=== PATIENT | male | born 1945 | race Two or more races ===

== ENCOUNTER 2016-11-27 14:27 | Inpatient (IN) | payer MEDICARE, MEDICAID ==
[~2016-11-27] VITALS: Ht 175.3 cm; Wt 86.2 kg
[2016-11-27] MEDS ORDERED: INSU3INS6 SQ (15:13)
[2016-11-27] MEDS ORDERED: METF10002 PO (15:13)
[2016-11-27] MEDS ORDERED: INSU3INS8 (15:13)
--- NOTE | 2016-11-27 15:15 | NUR ---
1st contact with patient- AOx3, calm, cooperative and follows command, strong body scent noted with clean clothes, patient's adult-son is at bedside.
--- NOTE | 2016-11-27 15:40 | NUR ---
intake worker Vasu is at bedside evaluating the patient.
[2016-11-27 15:44] LABS: ETHANOL < 3 MG/DL (0-0)
[2016-11-27 15:45] LABS: *BILIRUBIN,URIN NEGATIVE (NEGATIVE); *BLOOD, URINE NEGATIVE (NEGATIVE); *CLARITY,URINE CLEAR (CLEAR); *COLOR,URINE YELLOW (YELLOW); *KETONES,URINE NEGATIVE (NEGATIVE); *PROTEIN,URINE NEGATIVE (NEGATIVE); *UROBILINOGEN,URINE 0.2 E.U./dl (NORMAL); LEUKOCYTE ESTERASE ,URINE NEGATIVE (NEGATIVE); NITRITE, URINE NEGATIVE (NEGATIVE)
[2016-11-27 15:48] LABS: BASOPHILS % (AUTO) 0.4 % (0.0-2.0); EOSINOPHILS # (AUTO) 0.1 K/uL (0.0-0.7); EOSINOPHILS % (AUTO) 1.4 % (0.0-7.0); HEMATOCRIT 46.2 % (40-50); LYMPHOCYTES # (AUTO) 1.4 K/UL (0.8-4.8); LYMPHOCYTES % (AUTO) 15.9 % (20.5-51.5); MEAN CORPUSCULAR HGB CONC 32 g/dL (32.0-37.0); MEAN CORPUSCULAR VOLUME 89.5 FL (82.0-92.0); MONOCYTES # (AUTO) 0.8 K/UL (0.1-1.30); MONOCYTES % (AUTO) 8.6 % (0.0-11.0); NEUTROPHILS # (AUTO) 6.5 K/UL (1.8-8.9); NEUTROPHILS % (AUTO) 73.7 % (38.5-71.5); PLATELET COUNT (AUTO) 287 K/UL (150-450); RED BLOOD CELL COUNT(AUTO) 5.16 MIL/UL (4.7-6.1); WHITE BLOOD COUNT (AUTO) 8.8 K/UL (4.0-11.2)
[2016-11-27 15:51] LABS: *AMPHETAMINE, URINE NEGATIVE (NEGATIVE); *BARBITURATE, URINE NEGATIVE (NEGATIVE); *CANNABINOID, URINE NEGATIVE (NEGATIVE); *COCCAINE, URINE NEGATIVE (NEGATIVE); *OPIATE, URINE NEGATIVE (NEGATIVE); *PHENCYCLIDINE SCREEN,URINE NEGATIVE (NEGATIVE)
[2016-11-27 15:54] LABS: BACTERIA,URINE NONE SEEN /HPF (NONE SEEN); RBC,URINE 0-3 /HPF (0-3); SQUAMOUS EPITHELIAL CELL,UR NONE SEEN /HPF (NONE SEEN); UGLUCOSE 2+ (NEGATIVE); WBC,URINE 0-3 /HPF (0-3)
[2016-11-27 16:03] LABS: ALANINE AMINOTRANSFERASE 23 U/L (16-63); ALKALINE PHOSPHATASE 94 U/L (50-136); ASPARTATE AMINOTRANSFERASE 15 U/L (15-37); BILIRUBIN,DIRECT 0.1 mg/dL (0.0-0.2); BILIRUBIN,TOTAL 0.7 mg/dL (0.2-1.0); CARBON DIOXIDE 28 mmol/L (21-32); CHLORIDE 98 mmol/L (98-107); CREATININE 1.1 mg/dL (0.6-1.3); TOTAL PROTEIN, SERUM 7.4 g/dL (6.4-8.2); UREA NITROGEN, BLOOD 15 mg/dL (7-18)
[2016-11-27 16:05] LABS: GLUCOSE 648 mg/dL (74-106)
--- NOTE | 2016-11-27 16:08 | NUR ---
SW consult requested. SYLVIA consulted with Dr. Grove regarding patient. SW then met with patient in his assigned ED room. Patient was seated at the edge of the bed, and was receptive to talking with SW. Patient's son Roe was in the room. SW tried to gather some psychosocial information, but although patient was pleasant and cooperative, patient kept deferring the questions to his son, who would then respond. Patient was alert, and was able to state his , current year, and the city he was currently in, but patient did present with tangential speech and was not able to directly answer the questions SW was asking, especially pertaining to his ability to tend to his ADL's at home. Patient is a 71 year old male who lives alone. According to his son, he brought patient in today due to increased confusion, altered mental status. Patient's son reported that he has noticed that patient has become increasingly forgetful over the last few weeks, including confusing/forgetting his children, locking himself out of the house, forgetting to eat (has been eating less and less over the last couple of weeks), walking around his neighborhood looking for his family, asking his children about his parents because he has forgotten that they years ago. Patient has 4 children, 2 sons and 2 daughters. One daughter lives in [place], while the other one lives in [place]. Both sons live locally in [place]. Patient's son stated that he and his brother have been trying to take care of their father and are always keeping the house stocked with food and visiting him, but that patient has not been eating much nor has he been taking his medications, due to forgetfulness. SYLVIA discussed with son the possibility of placement for his father, which son stated they would probably need to consider in the near future. After consulting with Dr. Grove, it was agreed to contact draw in hand Talat Lund for an evaluation. SYLVIA informed patient's son that an evaluation would be done by the draw in hand, which patient's son was receptive to. SYLVIA left a voicemail message for Talat at [phone]. Dr. Grove informed. Patient's son also provided SYLVIA with a copy of patient's Advance Directive, naming his son Roe as primary POA and his other son Horacio as secondary POA. Copy of the Advance Directive filed in patient's ED chart.
--- NOTE | 2016-11-27 16:16 | NUR ---
Patient is pleasant, oriented to name, place & time but forgetful of recent events,+short-term memory recall issues noted.
[2016-11-27] MEDS ORDERED: INSULIN REGULAR, HUMAN 300 UNIT/3 ML VIAL IV ONE (16:30)
[2016-11-27] MEDS ORDERED: IV NORMAL SALINE 1000 ML BAG IV ONE ×2 (16:30)
[2016-11-27] MEDS ORDERED: INSULIN REGULAR, HUMAN 300 UNIT/3 ML VIAL ONE (16:44)
--- NOTE | 2016-11-27 16:46 | NUR ---
Patient voided 2x in the bathroom & one bowel movement per patient and son.
--- NOTE | 2016-11-27 16:47 | NUR ---
SYLVIA met with patient's son Roe and provided him with a copy of the New Lifestyle book, which includes a list of penitentiary options throughout [facility]. Patient's son Roe thanked SYLVIA for the resource.
--- NOTE | 2016-11-27 16:55 | NUR ---
"OK to have diabetic dinner tray" per Dr Grove.
[2016-11-27 17:22] LABS: ACETAMINOPHEN < 2.0 ug/mL (10-30)
--- NOTE | 2016-11-27 17:30 | NUR ---
Patient is medically cleared by Dr Grove, nursing hands off report given to nurse Rivera.
--- NOTE | 2016-11-27 17:43 | NUR ---
IV removed. Catheter intact and site benign. Pressure and 4x4 gauze applied to site. No bleeding noted.
[2016-11-27] MEDS ORDERED: MAG HYDROX/AL HYDROX/SIMETH 30 ML LIQUID UDC PO PRN (18:30)
[2016-11-27] MEDS ORDERED: MAGNESIUM HYDROXIDE 30 ML LIQUID UDC PO PRN (18:30)
[2016-11-27] MEDS ORDERED: ACETAMINOPHEN 325 MG TABLET PO PRN (18:30)
[2016-11-27] MEDS ORDERED: TEMAZEPAM 7.5 MG CAPSULE PO PRN (18:30)
[2016-11-27] MEDS ORDERED: LORAZEPAM 1 MG TABLET PO PRN (18:30)
[2016-11-27] MEDS ORDERED: DEXTROSE 50% 50 ML DISP.SYRIN IV PRN (20:15)
[2016-11-27] MEDS: DIVALPROEX 250 MG TABLET.DR PO SCH (20:36)
[2016-11-27] MEDS: BLOOD SUGAR DIAGNOSTIC 1 EACH STRIP VI SCH (20:37)
[2016-11-27 20:39] VITALS: BP 175/92
[2016-11-27] MEDS ORDERED: BLOOD SUGAR DIAGNOSTIC 1 EACH STRIP VI SCH (21:00)
[2016-11-27] MEDS ORDERED: INSULIN GLARGINE,HUM 300 UNITS/3 ML CARTRIDGE SQ SCH (21:00)
[2016-11-27] MEDS: INSULIN REGULAR, HUMAN 300 UNIT/3 ML VIAL SQ PRN (21:10)
[2016-11-27] MEDS: INSULIN DETEMIR 300 UNIT/3 ML CARTRIDGE SQ SCH (21:16)
--- NOTE | 2016-11-27 21:30 | NUR ---
GPS: Admitted to unit earlier a 71 yr.old male from our E.R. in fair condition. Pt.was brought in by his son from home due to declining mental condition. Pt.is on a 72 hour hold for GD. Pt.has been forgetting meds.,adl's and occassionally getting lost in the neighborhood and wandering into neighbor's apt's,per hold. Pt.is alert to name/person only. Confused and disoriented. Easily irritable when being re-directed. Safety emphasized. Will monitor behavior. Belongings list completed earlier. Accuchecks as ordered. Admission orders verified with . saw pt.already earlier.
[2016-11-28] MEDS: BLOOD SUGAR DIAGNOSTIC 1 EACH STRIP VI SCH ×4 (06:38→21:06)
[2016-11-28 07:30] VITALS: BP 130/65
[2016-11-28] MEDS: DIVALPROEX 250 MG TABLET.DR PO SCH ×2 (08:44→21:00)
[2016-11-28] MEDS: METFORMIN HCL 500 MG TABLET PO SCH ×2 (08:45→17:54)
[2016-11-28] MEDS: INSULIN REGULAR, HUMAN 300 UNIT/3 ML VIAL SQ PRN ×3 (08:52→21:07)
[2016-11-28] MEDS: LORAZEPAM 0.5 MG TABLET PO PRN (11:04)
--- NOTE | 2016-11-28 11:04 | NUR ---
patient agitated and angry trying to hit staff- offered ativan 0.5 mg po but patient refused and more angry.
--- NOTE | 2016-11-28 11:14 | NUR ---
PT IS CONFUSED, DEMAND FOR POLICE TO COME AND "FREE PEOPLE IN HERE". PT IS REFUSING PRN MEDICATIONS. PT IS BEING INAPPROPRIATE WITH STAFF AND OTHER FEMALE PT, CALLING STAFF "FUCKING BITCH" AND TELLING THE PT TO GO "SPREAD HER LEGS." PT POSTURED WITH STAFF AND HAD HIS HANDS IN FISTS, YELLING "I'LL SHOW YOU!". DR. MELENDEZ CONTACTED, ORDER FOR ONE TIME IM (ATIVAN 2MG, HALDOL 5MG, BENADRYL 25MG) WAS RECEIVED.
[2016-11-28] MEDS ORDERED: LORAZEPAM 2 MG/1 ML VIAL IM ONE (11:15)
[2016-11-28] MEDS ORDERED: diphenhydrAMINE 50 MG/1 ML VIAL IM ONE (11:15)
[2016-11-28] MEDS ORDERED: HALOPERIDOL LACTATE 5 MG/1 ML VIAL IM ONE (11:15)
[2016-11-28 15:11] VITALS: BP 146/61
--- NOTE | 2016-11-28 15:22 | NUR ---
Initial discharge instructions: The patient resides at home [[id number] [place] [address]; ] independently. SW spoke with the patient's son Roe Nowak who stated that he has been working with [facility] but stated that he would like [facility] SW to assist with placement as well. He would like SNF placement. SW will speak with patient, family, and MD regarding most appropriate discharge plan. SS will form a safe and proper discharge.
--- NOTE | 2016-11-28 17:54 | NUR ---
patient still sedated from chemical restraint that was administered at 1120 due to uncontrolled behavior. 1030 BS accu check 166mg/di, regular insulin sliding scale no adm and metformin 1000mg po not given , patient not eating.Will continue to monitor behavior.
[2016-11-28 20:00] VITALS: BP 138/62
[2016-11-28] MEDS: INSULIN DETEMIR 300 UNIT/3 ML CARTRIDGE SQ SCH (21:00)
[2016-11-29] MEDS: BLOOD SUGAR DIAGNOSTIC 1 EACH STRIP VI SCH ×4 (06:36→20:24)
[2016-11-29 07:30] VITALS: BP 151/87
[2016-11-29] MEDS: INSULIN REGULAR, HUMAN 300 UNIT/3 ML VIAL SQ PRN ×4 (08:09→20:28)
[2016-11-29] MEDS: METFORMIN HCL 500 MG TABLET PO SCH ×2 (08:30→17:37)
[2016-11-29] MEDS: QUETIAPINE FUMARATE 25 MG TABLET PO SCH ×2 (08:30→17:37)
[2016-11-29] MEDS: DIVALPROEX 250 MG TABLET.DR PO SCH ×2 (08:30→20:25)
[2016-11-29 16:05] VITALS: BP 126/57
[2016-11-29] MEDS: INSULIN DETEMIR 300 UNIT/3 ML CARTRIDGE SQ SCH (20:26)
[2016-11-30] MEDS: BLOOD SUGAR DIAGNOSTIC 1 EACH STRIP VI SCH ×5 (06:32→21:12)
[2016-11-30 07:30] VITALS: BP 151/76
[2016-11-30] MEDS: METFORMIN HCL 500 MG TABLET PO SCH ×2 (08:52→18:00)
[2016-11-30] MEDS: DIVALPROEX 250 MG TABLET.DR PO SCH ×2 (08:52→20:34)
[2016-11-30] MEDS: QUETIAPINE FUMARATE 25 MG TABLET PO SCH ×2 (08:53→17:00)
[2016-11-30] MEDS: INSULIN REGULAR, HUMAN 300 UNIT/3 ML VIAL SQ PRN ×3 (08:56→21:15)
[2016-11-30 20:22] VITALS: BP 139/76
--- NOTE | 2016-11-30 20:56 | NUR ---
GPS:PATIENT's blood sugar 405 mg/dl @ 20:56 pm. REPEATED BLOOD SUGAR 381 MG/DL @ 21:04 PM. Orly Harris. NOTIFIED VIA PHONE. STATED GIVE SLIDING SCALE COVERAGE 10 UNITS REGULAR INSULIN AND LEVEMIR 40 UNITS SUB-Q. NO NEW ORDER RECEIVED. PATIENT ALERT AND ORIENTED WITH PERIOD OF CONFUSION. SITTING NEAR NURSING STATION.CHARGE NURSE MADE AWARE.
[2016-11-30] MEDS: INSULIN DETEMIR 300 UNIT/3 ML CARTRIDGE SQ SCH (21:17)
[2016-12-01] MEDS: BLOOD SUGAR DIAGNOSTIC 1 EACH STRIP VI SCH ×4 (06:25→20:41)
--- NOTE | 2016-12-01 06:50 | NUR ---
GPS: REMAIN COOPERATIVE WITH MEDS ONLY.UNCOOPERATIVE WITH CARE. REFUSED SHOWER THIS MORNING. SLEPT 07:30 HRS THROUGH THE NIGHT. BLOOD SUGAR 85 MG/DL THIS MORNING. Addendum: 12/01/16 at 0653 by DEMARIO GOEL LVN GPS: SLEPT ONLY 6 HRS NOT 07:30 HRS.
[2016-12-01 07:30] VITALS: BP 100/64
[2016-12-01] MEDS: DIVALPROEX 250 MG TABLET.DR PO SCH ×2 (08:36→17:36)
[2016-12-01] MEDS: METFORMIN HCL 500 MG TABLET PO SCH ×2 (08:36→17:37)
[2016-12-01] MEDS: QUETIAPINE FUMARATE 25 MG TABLET PO SCH ×2 (08:36→17:37)
--- NOTE | 2016-12-01 09:08 | NUR ---
Aircraft Part Assembler The patient's son Roe Nowak requested that an inquiry be faxed to [facility] [phone: fax: ]. SW has faxed an inquiry and is awaiting call back.
[2016-12-01] MEDS: INSULIN REGULAR, HUMAN 300 UNIT/3 ML VIAL SQ PRN ×3 (12:39→20:45)
[2016-12-01 19:51] VITALS: BP 115/60
[2016-12-01] MEDS: INSULIN DETEMIR 300 UNIT/3 ML CARTRIDGE SQ SCH (20:46)
[2016-12-02] MEDS: BLOOD SUGAR DIAGNOSTIC 1 EACH STRIP VI SCH ×5 (06:57→22:07)
[2016-12-02 07:30] VITALS: BP 126/77
--- NOTE | 2016-12-02 07:33 | NUR ---
Rechecked BG is 114.
[2016-12-02] MEDS: DIVALPROEX 250 MG TABLET.DR PO SCH ×3 (08:34→17:36)
[2016-12-02] MEDS: METFORMIN HCL 500 MG TABLET PO SCH ×2 (08:34→18:15)
[2016-12-02] MEDS: QUETIAPINE FUMARATE 25 MG TABLET PO SCH ×3 (08:34→17:37)
[2016-12-02] MEDS: INSULIN REGULAR, HUMAN 300 UNIT/3 ML VIAL SQ PRN ×2 (12:56→22:13)
[2016-12-02 15:00] VITALS: BP 135/64
[2016-12-02 20:45] VITALS: BP 140/80
[2016-12-02 20:47] VITALS: BP 140/80
[2016-12-02] MEDS: INSULIN DETEMIR 300 UNIT/3 ML CARTRIDGE SQ SCH (21:00)
[2016-12-02] MEDS ORDERED: LORAZEPAM 2 MG/1 ML VIAL IM ONE (21:15)
[2016-12-02] MEDS ORDERED: OLANZAPINE 10 MG VIAL IM ONE ×2 (21:15→21:22)
[2016-12-02] MEDS ORDERED: LORAZEPAM 2 MG/1 ML VIAL ONE (21:23)
--- NOTE | 2016-12-02 23:21 | NUR ---
At approx 1999 patient was noted pacing the hallway demanding to leave the unit. Multiple redirection were given; however patient was belligerent, yelling, cursing at staff. He continue going in an out of his room demanding to see his doctor. He also refused BG accuchecks. Patient continue for approx one more hour belligerent, yelling and cursing at staff. Continue with muliple redirection; however, patient made a fist with his right hand and threatened to punch staff. Dr. Apodaca was notified at approx 2099. Dr. Apodaca then called back at approx 2119, with new order to administer Ativan 1mg IM PRN for severe agitation and Zyprexa 5ng IM PRN for severe agitation. However, patient was noted calm and resting in his room. He was able to complied with [facility] BG accu-check and insulin regiment. we will continue to monitor behavior and the need for chemical restrains.
[2016-12-03] MEDS: BLOOD SUGAR DIAGNOSTIC 1 EACH STRIP VI SCH ×4 (06:41→21:13)
--- NOTE | 2016-12-03 07:28 | NUR ---
Patient slept for approx 5.30hrs through the night. He is noted calm and cooperative. He also had a shower this morning. we will continue to monitor.
[2016-12-03] MEDS: LORAZEPAM 0.5 MG TABLET PO PRN (08:53)
[2016-12-03] MEDS: QUETIAPINE FUMARATE 25 MG TABLET PO SCH ×4 (08:53→20:00)
[2016-12-03] MEDS: METFORMIN HCL 500 MG TABLET PO SCH ×2 (08:53→18:07)
[2016-12-03] MEDS: DIVALPROEX 250 MG TABLET.DR PO SCH ×3 (08:53→16:05)
[2016-12-03] MEDS: INSULIN REGULAR, HUMAN 300 UNIT/3 ML VIAL SQ PRN ×4 (12:30→21:20)
[2016-12-03 15:34] VITALS: BP 106/64
[2016-12-03 20:30] VITALS: BP 139/79
[2016-12-03] MEDS ORDERED: INSULIN GLARGINE,HUM 300 UNITS/3 ML CARTRIDGE SQ SCH (21:00)
[2016-12-03] MEDS: INSULIN DETEMIR 300 UNIT/3 ML CARTRIDGE SQ SCH (21:21)
[2016-12-04] MEDS: BLOOD SUGAR DIAGNOSTIC 1 EACH STRIP VI SCH ×4 (06:47→20:44)
--- NOTE | 2016-12-04 06:55 | NUR ---
Patient slept for approx 4.30hrs through the night. Less combative and argumentative than last 2 days. His BG this am was 245. patient noted calm and cooperative.
[2016-12-04 07:30] VITALS: BP 144/76
[2016-12-04] MEDS: METFORMIN HCL 500 MG TABLET PO SCH ×2 (08:17→17:15)
[2016-12-04] MEDS: QUETIAPINE FUMARATE 25 MG TABLET PO SCH ×2 (08:17→22:02)
[2016-12-04] MEDS: DIVALPROEX 250 MG TABLET.DR PO SCH ×3 (08:17→17:15)
[2016-12-04] MEDS: INSULIN REGULAR, HUMAN 300 UNIT/3 ML VIAL SQ PRN ×3 (08:17→20:47)
--- NOTE | 2016-12-04 12:20 | NUR ---
patient accucheck blood sugar @ 1130 283 mg/dl-patient refused regular insulin coverage in spite of the explanation. Patient became agitated and angry stated " I don't want it" and uttered foul language like "fuck you'.
[2016-12-04 16:07] VITALS: BP 154/76
--- NOTE | 2016-12-04 19:38 | NUR ---
Pt NOTED TO BE AGGRESSIVE AND VERBALLY ABUSIVE TOWARD STAFF UPON APPROACH. Pt BECAME ELEVATED WHEN RN INTRODUCED HERSELF TO Pt. HE YELLED "FUCK YOU, I'M DONE WITH TREATMENT GO FUCK YOURSELF!" Pt POSTURED AGGRESSIVELY TOWARD RN AND CONTINUED TO BE VERBALLY ABUSIVE, YELLING AND SCREAMING, REFUSING TO CALM. Pt REFUSED PO PRN ATIVAN. DR TINSLEY PAGED, AWAITING CALL BACK.
[2016-12-04] MEDS: INSULIN DETEMIR 300 UNIT/3 ML CARTRIDGE SQ SCH (20:49)
[2016-12-04] MEDS: LORAZEPAM 0.5 MG TABLET PO PRN (20:54)
--- NOTE | 2016-12-04 22:28 | NUR ---
DR TINSLEY CALLED BACKED WITH ORDERS TO GIVE ZYPREXA 5MG AND ATIVAN 1MG IM. THIS WAS HELD DUE TO Pt AGREEING TO TAKE HIS PRN ATIVAN AND LATER, HIS SEROQUEL. SEROQUEL GIVEN LATE DUE TO INITIAL Pt REFUSAL. Pt IS NOW CALMED AND LYING IN BED.
[2016-12-04] MEDS ORDERED: OLANZAPINE 10 MG VIAL IM ONE (22:40)
[2016-12-04] MEDS ORDERED: LORAZEPAM 2 MG/1 ML VIAL IM ONE (22:40)
--- NOTE | 2016-12-04 22:51 | NUR ---
Pt GOT OUT OF BED AT 2235 AND BECAME PHYSICALLY COMBATIVE TOWARD ENGINEER REMOTE CONTROL DIESEL, POSTURING AGGRESSIVELY, AND ATTEMPTING TO STRIKE OUT. Pt WAS THREATENING AND VERBALLY ABUSIVE, REFUSING TO CALM. IM ORDER OF ATIVAN 1MG AND ZYPREXA 5MG CARRIED OUT AND ADMINISTERED. 2 MEMBERS FROM SECURITY ASSISTED STAFF IN HELPING SECURE THE Pt FOR IM ADMINISTRATION. HAND ON Pt FOR LESS THAN ONE MINUTE. Pt IN NO ACUTE PHYSICAL DISTRESS AT THIS TIME, WILL CONTINUE TO MONITOR.
[2016-12-05] MEDS: BLOOD SUGAR DIAGNOSTIC 1 EACH STRIP VI SCH ×4 (06:32→21:04)
--- NOTE | 2016-12-05 06:41 | NUR ---
AM BS 141. VS STABLE, IN NO ACUTE DISTRESS AT THIS TIME. Pt CURRENTLY RESTING IN BED. SLEPT 6.5 Hrs.
[2016-12-05 07:44] VITALS: BP 110/68
--- NOTE | 2016-12-05 08:58 | NUR ---
Morning medications non-administered patient sleeping after IM shot as reported.
--- NOTE | 2016-12-05 10:10 | NUR ---
At this time staff member found lying on the floor, AAOX1-2 vitals signs stable, no injuries sustained, denies any pain or discomfort. Upon assessment no injuries noted. Attending physician and DPOA notified, awaiting call back.
[2016-12-05] MEDS: DIVALPROEX 250 MG TABLET.DR PO SCH ×3 (10:39→17:11)
[2016-12-05] MEDS: METFORMIN HCL 500 MG TABLET PO SCH ×2 (10:39→17:11)
[2016-12-05] MEDS: QUETIAPINE FUMARATE 25 MG TABLET PO SCH ×2 (10:39→17:11)
--- NOTE | 2016-12-05 11:46 | NUR ---
Patient sitting on geriatric chair and refusing accucheck at this time, pock already and push me to the side stating "leave alone you f...b.... I'm not giving you anything" patient educated on the need to closely monitor blood sugar. and procedure attempted 10 minutes later and still refusing.
[2016-12-05 16:32] VITALS: BP 150/77
--- NOTE | 2016-12-05 16:40 | NUR ---
Patient attempting to get out of bed, and refusing accu-check at this time. Patient educated on the need to monitor glucose level but still refusing. Instead patient getting more aggressive and using profanities to insult staff. Security called as behavior escalated. Patient placed on geriatric chair. called and notified of pt's behavior.
--- NOTE | 2016-12-05 17:05 | NUR ---
At this time pt's son and DPOA Mr. Au in to visit, he was informed of his father behavior. Attempts to check blood sugar for the 2nd time with him at bedside but patient refused stating "Get the f... out of here."
[2016-12-05] MEDS: LORAZEPAM 0.5 MG TABLET PO PRN (17:13)
[2016-12-05] MEDS ORDERED: QUETIAPINE FUMARATE 25 MG TABLET PO PRN (20:00)
[2016-12-05] MEDS ORDERED: QUETIAPINE FUMARATE 25 MG TABLET PO SCH (21:00)
[2016-12-05] MEDS: QUETIAPINE FUMARATE 100 MG TABLET PO SCH (21:10)
[2016-12-05] MEDS: INSULIN REGULAR, HUMAN 300 UNIT/3 ML VIAL SQ PRN (21:12)
[2016-12-05] MEDS: INSULIN DETEMIR 300 UNIT/3 ML CARTRIDGE SQ SCH (21:18)
[2016-12-06] MEDS: BLOOD SUGAR DIAGNOSTIC 1 EACH STRIP VI SCH ×5 (06:45→21:00)
[2016-12-06 07:30] VITALS: BP 127/59
[2016-12-06] MEDS: INSULIN REGULAR, HUMAN 300 UNIT/3 ML VIAL SQ PRN ×2 (07:50→16:37)
[2016-12-06] MEDS: METFORMIN HCL 500 MG TABLET PO SCH ×2 (08:11→17:00)
[2016-12-06] MEDS: DIVALPROEX 250 MG TABLET.DR PO SCH ×4 (08:11→20:20)
[2016-12-06] MEDS: QUETIAPINE FUMARATE 25 MG TABLET PO SCH ×2 (08:11→16:29)
[2016-12-06 16:00] VITALS: BP 143/75
[2016-12-06] MEDS: QUETIAPINE FUMARATE 100 MG TABLET PO SCH (20:09)
[2016-12-06] MEDS: INSULIN DETEMIR 300 UNIT/3 ML CARTRIDGE SQ SCH (21:00)
--- NOTE | 2016-12-06 23:00 | NUR ---
PATIENT RECEIVED IN [place] CHAIR SECURE, REMAINS WITH A 1:1 SITTER FOR SAFETY. PATIENT IS LABILE TOWARDS STAFF, EASILY IRRITABLE, EASILY AGITATED, AND COMBATIVE. PATIENT IS UNPREDICTABLE. PATIENT REFUSED ACCU CHECK AT 2100 "GO FUCK YOUR SELF." PATIENT COMPLAINT WITH HS MEDICATION, DEPAKOTE 500MG NEW ORDER, TOOK ONLY 1 MEDICATION AND REFUSED THE OTHER, DR. ALVINA NOLAN.
[2016-12-07] MEDS: BLOOD SUGAR DIAGNOSTIC 1 EACH STRIP VI SCH ×2 (06:37→12:26)
[2016-12-07 07:30] VITALS: BP 150/84
--- NOTE | 2016-12-07 10:02 | NUR ---
DC Note: Patient will be discharged to [facility] [[address] [place] [address]; ] via ambulance at 12:00 pm. Spoke with Henok at the facility who stated they would accept the patient today. Patient's DPOA/Son, Roe [phone] is aware and agreeable with discharge plans. Patient is aware and agreeable with discharge plans. Patient will follow-up with (Psychiatrist) and (Cut And Cover Line Worker) at the facility.
[2016-12-07] MEDS: METFORMIN HCL 500 MG TABLET PO SCH (11:23)
[2016-12-07] MEDS: QUETIAPINE FUMARATE 25 MG TABLET PO SCH (11:24)
[2016-12-07] MEDS: DIVALPROEX 250 MG TABLET.DR PO SCH (11:25)
--- NOTE | 2016-12-07 11:30 | NUR ---
0730 RECEIVED PATIENT IN BED SOUND ASLEEP BUT AROUSABLE WHEN NAME CALLED . RESPIRATION EVEN AND UNLABORED, NO S/S ACUTE DISTRESS. WITH 1;1 SITTER FOR SAFETY. 1115 PATIENT JUST WOKE UP, BREAKFAST SERVED AND MORING MEDICATIONS GIVE . REGULAR INSULIN COVERAGE NOT ADMINISTERED ,EAT BREAKFAST LATE. WILL RECHECKED BLOOD SUGAR PRIOR LUNCH.
[2016-12-07 12:14] VITALS: BP 144/73
[2016-12-07] MEDS: INSULIN REGULAR, HUMAN 300 UNIT/3 ML VIAL SQ PRN (12:32)
--- NOTE | 2016-12-07 15:00 | NUR ---
1200 CALLED [facility], SNF SPOKE WITH NEPTALI JACKSON WHO WILL ADMIT THE PATIENT. REPORT REGARDING PATIENT DIAGNOSIS MENTAL AND MEDICAL CONDITION, RN VERBALIZED UNDERSTANDING. 1510 pICKED UP BY AMBULANCE AND TRANSFER PATIENT TO THE FACILITY MENTIONED ABOVE. PATIENT ALERT AND OX2, DENIES SI/HI. NO HALLUCINATION/ NO DELUSION NOTED.
[2016-12-07] MEDS ORDERED: DIVALPROEX 250 MG TABLET.DR PO SCH (17:00)
== END 2016-12-07 15:10 | DRG 885 ==
LOC: ER 14:27 → GPS 17:48
PROVIDERS: ADMIT Psychiatry & Neurology Psychiatry; ATTEND Internal Medicine
DX: F39 Unspecified mood [affective] disorder (principal); E43 Unspecified severe protein-calorie malnutrition; E11.65 Type 2 diabetes mellitus with hyperglycemia; G92 Toxic encephalopathy; F03.91 Unspecified dementia, unspecified severity, with behavioral disturbance; Z82.49 Family history of ischemic heart disease and other diseases of the circulatory system; Z68.28 Body mass index [BMI] 28.0-28.9, adult; Z79.4 Long term (current) use of insulin
CPT/HCPCS: 36415; 80164; 80307; 85025; A4663; G0480; G0480-TC; J1200; J1630; J1815; J2060; J2358; J3490; J7030

== ENCOUNTER 2019-02-02 20:38 | Inpatient (IN) | payer MEDICARE, MEDICAID ==
[~2019-02-02] VITALS: Ht 172.7 cm; Wt 73.0 kg
[~2019-02-02 20:38] MED LIST: INSU3INS6 SQ; INSU3INS8; METF-442 PO
[2019-02-02 21:11] LABS: BASOPHILS % (AUTO) 0.2 % (0.0-2.0); EOSINOPHILS # (AUTO) 0.4 K/uL (0.0-0.7); EOSINOPHILS % (AUTO) 3.4 % (0.0-7.0); LYMPHOCYTES # (AUTO) 2.8 K/uL (20.0-40.0); LYMPHOCYTES % (AUTO) 22.3 % (20.5-51.5); MEAN CORPUSCULAR HEMOGLOBIN 30.1 uug (23.8-33.4); MEAN CORPUSCULAR HGB CONC 33 g/dL (32.5-36.3); MEAN CORPUSCULAR VOLUME 90.6 fL (73.0-96.2); MONOCYTES # (AUTO) 0.9 K/uL (2.0-10.0); MONOCYTES % (AUTO) 7.6 % (0.0-11.0); NEUTROPHILS # (AUTO) 8.3 K/uL (1.8-8.9); NEUTROPHILS % (AUTO) 66.5 % (38.5-71.5); PLATELET COUNT (AUTO) 418 K/uL (152-348); RED BLOOD CELL COUNT(AUTO) 4.96 MIL/uL (4.06-5.63); WHITE BLOOD COUNT (AUTO) 12.5 K/uL (3.6-10.2)
[2019-02-02 21:18] LABS: CARBON DIOXIDE 30 mmol/L (21-32); CHLORIDE 101 mmol/L (98-107); CREATININE 1.2 mg/dL (0.6-1.3); POTASSIUM 5.1 mmol/L (3.5-5.1); UREA NITROGEN, BLOOD 26 mg/dL (7-18)
[2019-02-02 21:20] LABS: GLUCOSE 390 mg/dL (74-106)
[2019-02-02 21:24] LABS: ALANINE AMINOTRANSFERASE 18 U/L (16-63); ALKALINE PHOSPHATASE 135 U/L (50-136); ASPARTATE AMINOTRANSFERASE 9 U/L (15-37); BILIRUBIN,DIRECT 0.1 mg/dL (0.0-0.2); BILIRUBIN,TOTAL 0.5 mg/dL (0.2-1.0); TOTAL PROTEIN, SERUM 8.2 g/dL (6.4-8.2)
[2019-02-02] MEDS ORDERED: MAGN400T29 PO (21:25)
[2019-02-02] MEDS ORDERED: ACET-2154 PO (21:25)
[2019-02-02] MEDS ORDERED: BISA10SU61 RC (21:25)
[2019-02-02] MEDS ORDERED: LISI-657 PO (21:25)
[2019-02-02] MEDS ORDERED: GLIP5TAB13 PO (21:25)
[2019-02-02] MEDS ORDERED: ONDA4TAB5 PO (21:25)
[2019-02-02] MEDS ORDERED: DOCU250C14 PO (21:25)
[2019-02-02] MEDS ORDERED: BASAGLAR KWIKPEN SUBCUT (21:25)
[2019-02-02] MEDS ORDERED: NA P133E RC (21:25)
[2019-02-02] MEDS ORDERED: MAG30ORA PO (21:25)
[2019-02-02] MEDS ORDERED: HUMALOG SUBCUT (21:25)
[2019-02-02] MEDS ORDERED: MULT1TAB73 PO (21:25)
[2019-02-02] MEDS ORDERED: ALPR0.255 PO (21:25)
[2019-02-02] MEDS ORDERED: LEVO100T10 PO (21:25)
[2019-02-02] MEDS ORDERED: ZINC220C8 PO (21:25)
[2019-02-02] MEDS ORDERED: AMIN30LI2 PO (21:25)
[2019-02-02] MEDS ORDERED: PRAV20TA4 PO (21:25)
[2019-02-02] MEDS ORDERED: GLUC1KIT IM (21:25)
[2019-02-02] MEDS ORDERED: METF-442 PO (21:25)
[2019-02-02] MEDS ORDERED: ASCO500C18 PO (21:25)
[2019-02-02 21:31] LABS: ETHANOL < 3 MG/DL (0-0)
[2019-02-02 21:32] LABS: *BILIRUBIN,URIN NEGATIVE (NEGATIVE); *BLOOD, URINE NEGATIVE (NEGATIVE); *CLARITY,URINE CLEAR (CLEAR); *COLOR,URINE YELLOW (YELLOW); *KETONES,URINE NEGATIVE (NEGATIVE); *UROBILINOGEN,URINE 0.2 E.U./dl (NORMAL); LEUKOCYTE ESTERASE ,URINE NEGATIVE (NEGATIVE); NITRITE, URINE NEGATIVE (NEGATIVE); PH,URINE 5.5 (5.0-8.0); UGLUCOSE 2+ (NEGATIVE)
[2019-02-02 21:38] LABS: BACTERIA,URINE FEW /HPF (NONE SEEN); MUCUS,URINE FEW /LPF (0-FEW); SQUAMOUS EPITHELIAL CELL,UR FEW /HPF (NONE SEEN)
[2019-02-02] MEDS ORDERED: INSULIN REGULAR, HUMAN 300 UNIT/3 ML VIAL ONE (21:38)
[2019-02-02 21:40] LABS: *AMPHETAMINE, URINE NEGATIVE (NEGATIVE); *BARBITURATE, URINE NEGATIVE (NEGATIVE); *CANNABINOID, URINE NEGATIVE (NEGATIVE); *COCCAINE, URINE NEGATIVE (NEGATIVE); *OPIATE, URINE NEGATIVE (NEGATIVE); *PHENCYCLIDINE SCREEN,URINE NEGATIVE (NEGATIVE)
[2019-02-02] MEDS ORDERED: INSULIN REGULAR, HUMAN 300 UNIT/3 ML VIAL SQ ONE (21:45)
[2019-02-02 21:48] LABS: THYROID STIMULATING HORMONE 4.949 mIU/mL (0.358-3.740)
[2019-02-02] MEDS ORDERED: MAGNESIUM HYDROXIDE 30 ML LIQUID UDC PO PRN (23:15)
[2019-02-02] MEDS ORDERED: MAG HYDROX/AL HYDROX/SIMETH 30 ML LIQUID UDC PO PRN (23:15)
[2019-02-02] MEDS ORDERED: ACETAMINOPHEN 325 MG TABLET PO PRN (23:15)
[2019-02-02] MEDS ORDERED: ZOLPIDEM 5 MG TABLET PO PRN (23:15)
[2019-02-03 00:02] VITALS: BP 111/72
[2019-02-03 07:30] VITALS: BP 112/58
[2019-02-03] MEDS ORDERED: Medication Not On Formulary EA (Multivitamins (Multivitamin) 1 EACH) PO SCH (09:00)
[2019-02-03] MEDS ORDERED: Medication Not On Formulary EA (Ascorbic Acid (Vitamin C) 500 MG) PO SCH (09:00)
[2019-02-03] MEDS ORDERED: BISACODYL 10 MG SUPP.RECT RC PRN (09:00)
[2019-02-03] MEDS ORDERED: FLEET ENEMA 133 ML BOTTLE RC PRN (09:00)
[2019-02-03] MEDS ORDERED: ONDANSETRON HCL 4 MG TABLET PO PRN (09:00)
[2019-02-03] MEDS ORDERED: ACETAMINOPHEN 325 MG TABLET PO PRN (09:00)
[2019-02-03] MEDS: LISINOPRIL 10 MG TABLET PO SCH (09:00)
[2019-02-03] MEDS ORDERED: Medication Not On Formulary EA (Amino Acids/Protein Hydrolys (Pro-Stat Liquid) 30 ML) PO SCH (09:00)
[2019-02-03] MEDS: ZINC SULFATE 220 MG CAPSULE PO SCH (09:00)
[2019-02-03] MEDS ORDERED: MAGNESIUM HYDROXIDE 400 MG PO SCH (09:00)
[2019-02-03] MEDS: LEVOTHYROXINE SODIUM 100 MCG TABLET PO SCH (09:00)
[2019-02-03] MEDS: DOCUSATE SODIUM 250 MG CAPSULE PO SCH (09:47)
[2019-02-03] MEDS: MULTIVITAMINS,THERAPEUTIC TABLET PO SCH (09:48)
[2019-02-03] MEDS: glipiZIDE 5 MG TABLET PO SCH ×2 (09:48→17:00)
[2019-02-03] MEDS: ASCORBIC ACID 500 MG TABLET PO SCH (09:48)
[2019-02-03 15:30] VITALS: BP 110/72
[2019-02-03] MEDS: METFORMIN HCL 500 MG TABLET PO SCH (17:09)
[2019-02-03] MEDS: MAGNESIUM OXIDE 400 MG TABLET PO SCH (17:10)
[2019-02-03] MEDS ORDERED: DEXTROSE 50% 50 ML DISP.SYRIN IV PRN (17:45)
[2019-02-03] MEDS ORDERED: INSULIN REGULAR, HUMAN 300 UNIT/3 ML VIAL SQ PRN (17:45)
[2019-02-03] MEDS: BLOOD SUGAR DIAGNOSTIC 1 EACH STRIP VI SCH ×2 (17:45→20:13)
[2019-02-03 20:00] VITALS: BP 121/65
[2019-02-03] MEDS: QUETIAPINE FUMARATE 25 MG TABLET PO SCH (20:04)
[2019-02-03] MEDS: ATORVASTATIN 10 MG TABLET PO SCH (20:04)
[2019-02-03] MEDS: INSULIN REGULAR, HUMAN 300 UNITS/3 ML VIAL SQ PRN (20:23)
[2019-02-03] MEDS: INSULIN GLARGINE,HUM 300 UNITS/3 ML CARTRIDGE SQ SCH (20:24)
[2019-02-03] MEDS ORDERED: INSULIN GLARGINE,HUM 300 UNITS/3 ML CARTRIDGE SQ SCH (21:00)
[2019-02-03] MEDS ORDERED: BASAGLAR 20 UNIT SUBCUT SCH (21:00)
[2019-02-04] MEDS: LEVOTHYROXINE SODIUM 100 MCG TABLET PO SCH (06:25)
[2019-02-04] MEDS: BLOOD SUGAR DIAGNOSTIC 1 EACH STRIP VI SCH ×4 (06:42→20:08)
[2019-02-04 07:30] VITALS: BP 98/57
[2019-02-04] MEDS: METFORMIN HCL 500 MG TABLET PO SCH ×3 (08:00→17:12)
[2019-02-04] MEDS: PROTEIN SUPPLEMENT (PROSTAT) 30 ML LIQUID PO SCH (08:00)
[2019-02-04] MEDS: LISINOPRIL 10 MG TABLET PO SCH ×2 (08:18→09:00)
[2019-02-04] MEDS: glipiZIDE 5 MG TABLET PO SCH ×3 (08:18→16:49)
[2019-02-04] MEDS: MAGNESIUM OXIDE 400 MG TABLET PO SCH ×3 (08:18→16:49)
[2019-02-04] MEDS: MULTIVITAMINS,THERAPEUTIC TABLET PO SCH (09:00)
[2019-02-04] MEDS: DOCUSATE SODIUM 250 MG CAPSULE PO SCH (09:00)
[2019-02-04] MEDS: ZINC SULFATE 220 MG CAPSULE PO SCH (09:00)
[2019-02-04] MEDS: ASCORBIC ACID 500 MG TABLET PO SCH (09:00)
[2019-02-04] MEDS ORDERED: OLANZAPINE 10 MG VIAL IM STA (14:21)
[2019-02-04] MEDS: QUETIAPINE FUMARATE 25 MG TABLET PO SCH (20:08)
[2019-02-04] MEDS: INSULIN GLARGINE,HUM 300 UNITS/3 ML CARTRIDGE SQ SCH (20:08)
[2019-02-04] MEDS: ATORVASTATIN 10 MG TABLET PO SCH (20:08)
[2019-02-04 20:23] VITALS: BP 120/62
[2019-02-05] MEDS: LEVOTHYROXINE SODIUM 100 MCG TABLET PO SCH (06:13)
[2019-02-05] MEDS: BLOOD SUGAR DIAGNOSTIC 1 EACH STRIP VI SCH ×5 (06:34→21:42)
[2019-02-05 07:45] VITALS: BP 125/80
[2019-02-05] MEDS: METFORMIN HCL 500 MG TABLET PO SCH ×2 (08:00→17:53)
[2019-02-05] MEDS: PROTEIN SUPPLEMENT (PROSTAT) 30 ML LIQUID PO SCH (08:00)
[2019-02-05] MEDS: DOCUSATE SODIUM 250 MG CAPSULE PO SCH (08:46)
[2019-02-05] MEDS: LISINOPRIL 10 MG TABLET PO SCH (08:46)
[2019-02-05] MEDS: MAGNESIUM OXIDE 400 MG TABLET PO SCH ×2 (08:46→17:00)
[2019-02-05] MEDS: glipiZIDE 5 MG TABLET PO SCH ×2 (08:46→17:00)
[2019-02-05] MEDS: MULTIVITAMINS,THERAPEUTIC TABLET PO SCH (08:47)
[2019-02-05] MEDS: ASCORBIC ACID 500 MG TABLET PO SCH (08:47)
[2019-02-05] MEDS: ZINC SULFATE 220 MG CAPSULE PO SCH (08:47)
[2019-02-05] MEDS ORDERED: OLANZAPINE 10 MG VIAL IM ONE (15:00)
[2019-02-05] MEDS: CEphaleXIN 500 MG CAPSULE PO SCH ×2 (15:03→20:09)
[2019-02-05] MEDS: ATORVASTATIN 10 MG TABLET PO SCH (20:09)
[2019-02-05] MEDS: QUETIAPINE FUMARATE 25 MG TABLET PO SCH (20:10)
[2019-02-05] MEDS: OXCARBAZEPINE 150 MG TABLET PO SCH (20:10)
[2019-02-05 20:14] VITALS: BP 110/69
[2019-02-05] MEDS: INSULIN REGULAR, HUMAN 300 UNITS/3 ML VIAL SQ PRN (20:20)
[2019-02-05] MEDS: INSULIN GLARGINE,HUM 300 UNITS/3 ML CARTRIDGE SQ SCH (20:21)
[2019-02-05] MEDS ORDERED: INSULIN REGULAR, HUMAN 300 UNIT/3 ML VIAL SQ ONE (21:54)
[2019-02-06] MEDS: CEphaleXIN 500 MG CAPSULE PO SCH ×3 (06:00→20:32)
[2019-02-06] MEDS: LEVOTHYROXINE SODIUM 100 MCG TABLET PO SCH (06:26)
[2019-02-06] MEDS: BLOOD SUGAR DIAGNOSTIC 1 EACH STRIP VI SCH ×4 (06:26→20:40)
[2019-02-06 07:56] VITALS: BP 125/63
[2019-02-06] MEDS: PROTEIN SUPPLEMENT (PROSTAT) 30 ML LIQUID PO SCH (08:00)
[2019-02-06] MEDS: OXCARBAZEPINE 150 MG TABLET PO SCH ×2 (08:48→17:18)
[2019-02-06] MEDS: MAGNESIUM OXIDE 400 MG TABLET PO SCH ×2 (08:48→17:18)
[2019-02-06] MEDS: METFORMIN HCL 500 MG TABLET PO SCH ×2 (08:48→17:16)
[2019-02-06] MEDS: glipiZIDE 5 MG TABLET PO SCH ×2 (08:48→17:18)
[2019-02-06] MEDS: MULTIVITAMINS,THERAPEUTIC TABLET PO SCH (08:48)
[2019-02-06] MEDS: ASCORBIC ACID 500 MG TABLET PO SCH (08:48)
[2019-02-06] MEDS: LISINOPRIL 10 MG TABLET PO SCH (08:49)
[2019-02-06] MEDS: ZINC SULFATE 220 MG CAPSULE PO SCH (08:49)
[2019-02-06] MEDS: DOCUSATE SODIUM 250 MG CAPSULE PO SCH (08:49)
[2019-02-06] MEDS: INSULIN REGULAR, HUMAN 300 UNIT/3 ML VIAL SQ PRN ×2 (12:45→18:00)
[2019-02-06 16:00] VITALS: BP 117/57
[2019-02-06] MEDS: ATORVASTATIN 10 MG TABLET PO SCH (20:32)
[2019-02-06] MEDS: QUETIAPINE FUMARATE 25 MG TABLET PO SCH (20:32)
[2019-02-06 20:35] VITALS: BP 119/65
[2019-02-06] MEDS: INSULIN GLARGINE,HUM 300 UNITS/3 ML CARTRIDGE SQ SCH (21:21)
[2019-02-07] MEDS: LEVOTHYROXINE SODIUM 100 MCG TABLET PO SCH (05:57)
[2019-02-07] MEDS: CEphaleXIN 500 MG CAPSULE PO SCH ×3 (05:57→19:50)
[2019-02-07] MEDS: BLOOD SUGAR DIAGNOSTIC 1 EACH STRIP VI SCH ×4 (07:09→21:00)
[2019-02-07 07:30] VITALS: BP 94/46
[2019-02-07] MEDS: PROTEIN SUPPLEMENT (PROSTAT) 30 ML LIQUID PO SCH (08:00)
[2019-02-07] MEDS: METFORMIN HCL 500 MG TABLET PO SCH ×2 (08:00→17:44)
[2019-02-07] MEDS: INSULIN REGULAR, HUMAN 300 UNIT/3 ML VIAL SQ PRN ×3 (08:55→17:41)
[2019-02-07] MEDS: MULTIVITAMINS,THERAPEUTIC TABLET PO SCH (09:00)
[2019-02-07] MEDS: LISINOPRIL 10 MG TABLET PO SCH (09:00)
[2019-02-07] MEDS: MAGNESIUM OXIDE 400 MG TABLET PO SCH ×2 (09:00→17:38)
[2019-02-07] MEDS: ZINC SULFATE 220 MG CAPSULE PO SCH (09:00)
[2019-02-07] MEDS: OXCARBAZEPINE 150 MG TABLET PO SCH ×3 (09:00→17:38)
[2019-02-07] MEDS: DOCUSATE SODIUM 250 MG CAPSULE PO SCH (09:00)
[2019-02-07] MEDS: glipiZIDE 5 MG TABLET PO SCH ×2 (09:00→17:38)
[2019-02-07] MEDS: ASCORBIC ACID 500 MG TABLET PO SCH (09:00)
[2019-02-07] MEDS ORDERED: OLANZAPINE 10 MG VIAL IM ONE (10:15)
[2019-02-07 15:26] VITALS: BP 124/67
[2019-02-07] MEDS: QUETIAPINE FUMARATE 25 MG TABLET PO SCH (19:51)
[2019-02-07] MEDS: ATORVASTATIN 10 MG TABLET PO SCH (19:51)
[2019-02-07 20:55] VITALS: BP 131/60
[2019-02-07] MEDS: INSULIN GLARGINE,HUM 300 UNITS/3 ML CARTRIDGE SQ SCH (21:02)
[2019-02-07] MEDS: INSULIN REGULAR, HUMAN 300 UNITS/3 ML VIAL SQ PRN (21:05)
[2019-02-08] MEDS: BLOOD SUGAR DIAGNOSTIC 1 EACH STRIP VI SCH ×4 (06:14→20:44)
[2019-02-08] MEDS: CEphaleXIN 500 MG CAPSULE PO SCH ×3 (06:14→22:00)
[2019-02-08] MEDS: LEVOTHYROXINE SODIUM 100 MCG TABLET PO SCH (06:14)
[2019-02-08 07:30] VITALS: BP 115/66
[2019-02-08] MEDS: PROTEIN SUPPLEMENT (PROSTAT) 30 ML LIQUID PO SCH (08:00)
[2019-02-08] MEDS: METFORMIN HCL 500 MG TABLET PO SCH ×3 (08:00→16:49)
[2019-02-08] MEDS: QUETIAPINE FUMARATE 25 MG TABLET PO SCH ×3 (09:00→11:40)
[2019-02-08] MEDS: OXCARBAZEPINE 150 MG TABLET PO SCH ×4 (09:00→16:49)
[2019-02-08] MEDS: MAGNESIUM OXIDE 400 MG TABLET PO SCH ×3 (09:00→16:49)
[2019-02-08] MEDS: ZINC SULFATE 220 MG CAPSULE PO SCH ×2 (09:00→11:38)
[2019-02-08] MEDS: glipiZIDE 5 MG TABLET PO SCH ×3 (09:00→16:49)
[2019-02-08] MEDS: ASCORBIC ACID 500 MG TABLET PO SCH (09:00)
[2019-02-08] MEDS: MULTIVITAMINS,THERAPEUTIC TABLET PO SCH ×2 (09:00→11:36)
[2019-02-08] MEDS: LISINOPRIL 10 MG TABLET PO SCH (09:00)
[2019-02-08] MEDS: DOCUSATE SODIUM 250 MG CAPSULE PO SCH (09:00)
[2019-02-08 15:14] VITALS: BP 108/66
[2019-02-08] MEDS: INSULIN REGULAR, HUMAN 300 UNIT/3 ML VIAL SQ PRN (17:02)
[2019-02-08] MEDS ORDERED: OLANZAPINE 10 MG VIAL IM ONE (20:00)
[2019-02-08] MEDS: INSULIN REGULAR, HUMAN 300 UNITS/3 ML VIAL SQ PRN (20:53)
[2019-02-08] MEDS: ATORVASTATIN 10 MG TABLET PO SCH (20:54)
[2019-02-08] MEDS: INSULIN GLARGINE,HUM 300 UNITS/3 ML CARTRIDGE SQ SCH (20:54)
[2019-02-08 23:21] VITALS: BP 126/60
[2019-02-09] MEDS: CEphaleXIN 500 MG CAPSULE PO SCH ×4 (05:09→22:31)
[2019-02-09] MEDS: LEVOTHYROXINE SODIUM 100 MCG TABLET PO SCH (06:02)
[2019-02-09] MEDS: BLOOD SUGAR DIAGNOSTIC 1 EACH STRIP VI SCH ×4 (06:10→19:53)
[2019-02-09 07:30] VITALS: BP 111/69
[2019-02-09] MEDS: PROTEIN SUPPLEMENT (PROSTAT) 30 ML LIQUID PO SCH (08:00)
[2019-02-09] MEDS: MAGNESIUM OXIDE 400 MG TABLET PO SCH ×2 (10:18→16:24)
[2019-02-09] MEDS: QUETIAPINE FUMARATE 25 MG TABLET PO SCH ×2 (10:19→20:05)
[2019-02-09] MEDS: MULTIVITAMINS,THERAPEUTIC TABLET PO SCH (10:20)
[2019-02-09] MEDS: glipiZIDE 5 MG TABLET PO SCH ×2 (10:21→16:24)
[2019-02-09] MEDS: ASCORBIC ACID 500 MG TABLET PO SCH (10:21)
[2019-02-09] MEDS: LISINOPRIL 10 MG TABLET PO SCH (10:22)
[2019-02-09] MEDS: ZINC SULFATE 220 MG CAPSULE PO SCH (10:23)
[2019-02-09] MEDS: METFORMIN HCL 500 MG TABLET PO SCH ×2 (10:23→17:04)
[2019-02-09] MEDS: DOCUSATE SODIUM 250 MG CAPSULE PO SCH (10:23)
[2019-02-09] MEDS: OXCARBAZEPINE 150 MG TABLET PO SCH ×2 (10:33→12:26)
[2019-02-09] MEDS: INSULIN REGULAR, HUMAN 300 UNIT/3 ML VIAL SQ PRN ×2 (12:24→17:19)
[2019-02-09 16:00] VITALS: BP 96/80
[2019-02-09] MEDS: OXCARBAZEPINE 300 MG TABLET PO SCH (16:24)
[2019-02-09] MEDS ORDERED: OXCARBAZEPINE 150 MG TABLET PO SCH (17:00)
[2019-02-09 19:45] VITALS: BP 164/84
[2019-02-09] MEDS: INSULIN GLARGINE,HUM 300 UNITS/3 ML CARTRIDGE SQ SCH (20:07)
[2019-02-09] MEDS: INSULIN REGULAR, HUMAN 300 UNITS/3 ML VIAL SQ PRN (20:08)
[2019-02-09] MEDS: ATORVASTATIN 10 MG TABLET PO SCH (20:10)
[2019-02-09 21:05] VITALS: BP 140/80
[2019-02-10] MEDS: CEphaleXIN 500 MG CAPSULE PO SCH ×3 (06:08→21:23)
[2019-02-10] MEDS: LEVOTHYROXINE SODIUM 100 MCG TABLET PO SCH (06:08)
[2019-02-10] MEDS: BLOOD SUGAR DIAGNOSTIC 1 EACH STRIP VI SCH ×4 (06:19→20:35)
[2019-02-10 07:30] VITALS: BP 118/47
[2019-02-10] MEDS: MULTIVITAMINS,THERAPEUTIC TABLET PO SCH (08:38)
[2019-02-10] MEDS: MAGNESIUM OXIDE 400 MG TABLET PO SCH ×2 (08:38→16:39)
[2019-02-10] MEDS: OXCARBAZEPINE 300 MG TABLET PO SCH ×3 (08:38→16:39)
[2019-02-10] MEDS: DOCUSATE SODIUM 250 MG CAPSULE PO SCH (08:38)
[2019-02-10] MEDS: METFORMIN HCL 500 MG TABLET PO SCH ×2 (08:38→17:11)
[2019-02-10] MEDS: glipiZIDE 5 MG TABLET PO SCH ×2 (08:38→16:39)
[2019-02-10] MEDS: QUETIAPINE FUMARATE 25 MG TABLET PO SCH ×2 (08:39→20:38)
[2019-02-10] MEDS: ASCORBIC ACID 500 MG TABLET PO SCH (08:39)
[2019-02-10] MEDS: LISINOPRIL 10 MG TABLET PO SCH (08:40)
[2019-02-10] MEDS: PROTEIN SUPPLEMENT (PROSTAT) 30 ML LIQUID PO SCH (08:41)
[2019-02-10] MEDS: ZINC SULFATE 220 MG CAPSULE PO SCH (08:54)
[2019-02-10] MEDS: INSULIN REGULAR, HUMAN 300 UNIT/3 ML VIAL SQ PRN ×2 (11:52→16:35)
[2019-02-10 15:17] VITALS: BP 110/56
[2019-02-10 20:00] VITALS: BP 118/52
[2019-02-10] MEDS: ATORVASTATIN 10 MG TABLET PO SCH (20:38)
[2019-02-10] MEDS: INSULIN GLARGINE,HUM 300 UNITS/3 ML CARTRIDGE SQ SCH (20:39)
[2019-02-10] MEDS: INSULIN REGULAR, HUMAN 300 UNITS/3 ML VIAL SQ PRN (20:40)
[2019-02-11] MEDS: CEphaleXIN 500 MG CAPSULE PO SCH ×3 (06:00→22:00)
[2019-02-11] MEDS: LEVOTHYROXINE SODIUM 100 MCG TABLET PO SCH (06:19)
[2019-02-11] MEDS: BLOOD SUGAR DIAGNOSTIC 1 EACH STRIP VI SCH ×4 (06:33→21:19)
[2019-02-11 07:30] VITALS: BP 127/55
[2019-02-11] MEDS: QUETIAPINE FUMARATE 25 MG TABLET PO SCH ×3 (08:25→21:00)
[2019-02-11] MEDS: glipiZIDE 5 MG TABLET PO SCH ×2 (08:25→16:28)
[2019-02-11] MEDS: ASCORBIC ACID 500 MG TABLET PO SCH (08:25)
[2019-02-11] MEDS: METFORMIN HCL 500 MG TABLET PO SCH ×2 (08:25→17:03)
[2019-02-11] MEDS: OXCARBAZEPINE 300 MG TABLET PO SCH ×3 (08:25→17:03)
[2019-02-11] MEDS: ZINC SULFATE 220 MG CAPSULE PO SCH (08:25)
[2019-02-11] MEDS: MAGNESIUM OXIDE 400 MG TABLET PO SCH ×2 (08:25→16:28)
[2019-02-11] MEDS: DOCUSATE SODIUM 250 MG CAPSULE PO SCH (08:26)
[2019-02-11] MEDS: LISINOPRIL 10 MG TABLET PO SCH (08:26)
[2019-02-11] MEDS: MULTIVITAMINS,THERAPEUTIC TABLET PO SCH (08:26)
[2019-02-11] MEDS: PROTEIN SUPPLEMENT (PROSTAT) 30 ML LIQUID PO SCH (08:27)
[2019-02-11 20:13] VITALS: BP 109/52
[2019-02-11] MEDS: ATORVASTATIN 10 MG TABLET PO SCH (21:00)
[2019-02-11] MEDS: INSULIN GLARGINE,HUM 300 UNITS/3 ML CARTRIDGE SQ SCH (21:00)
[2019-02-12] MEDS: CEphaleXIN 500 MG CAPSULE PO SCH (06:33)
[2019-02-12] MEDS: LEVOTHYROXINE SODIUM 100 MCG TABLET PO SCH (06:33)
[2019-02-12] MEDS: BLOOD SUGAR DIAGNOSTIC 1 EACH STRIP VI SCH ×4 (06:37→20:01)
[2019-02-12 07:30] VITALS: BP 149/62
[2019-02-12] MEDS: PROTEIN SUPPLEMENT (PROSTAT) 30 ML LIQUID PO SCH (08:00)
[2019-02-12] MEDS: MULTIVITAMINS,THERAPEUTIC TABLET PO SCH (09:00)
[2019-02-12] MEDS: ZINC SULFATE 220 MG CAPSULE PO SCH (09:00)
[2019-02-12] MEDS: ASCORBIC ACID 500 MG TABLET PO SCH (09:00)
[2019-02-12] MEDS: DOCUSATE SODIUM 250 MG CAPSULE PO SCH (09:14)
[2019-02-12] MEDS: MAGNESIUM OXIDE 400 MG TABLET PO SCH ×2 (09:14→17:31)
[2019-02-12] MEDS: METFORMIN HCL 500 MG TABLET PO SCH ×2 (09:14→17:31)
[2019-02-12] MEDS: QUETIAPINE FUMARATE 25 MG TABLET PO SCH ×3 (09:15→20:01)
[2019-02-12] MEDS: OXCARBAZEPINE 300 MG TABLET PO SCH ×3 (09:16→17:31)
[2019-02-12] MEDS: LISINOPRIL 10 MG TABLET PO SCH (09:16)
[2019-02-12] MEDS: glipiZIDE 5 MG TABLET PO SCH ×2 (09:16→17:31)
[2019-02-12] MEDS ORDERED: OLANZAPINE 10 MG VIAL IM ONE (13:15)
[2019-02-12 16:00] VITALS: BP 119/58
[2019-02-12] MEDS: ATORVASTATIN 10 MG TABLET PO SCH (20:01)
[2019-02-12 20:25] VITALS: BP 127/61
[2019-02-13] MEDS: BLOOD SUGAR DIAGNOSTIC 1 EACH STRIP VI SCH ×4 (05:58→20:41)
[2019-02-13] MEDS: LEVOTHYROXINE SODIUM 100 MCG TABLET PO SCH (05:58)
[2019-02-13 07:30] VITALS: BP 118/63
[2019-02-13] MEDS: METFORMIN HCL 500 MG TABLET PO SCH ×2 (08:39→16:52)
[2019-02-13] MEDS: QUETIAPINE FUMARATE 25 MG TABLET PO SCH ×3 (08:40→20:41)
[2019-02-13] MEDS: MAGNESIUM OXIDE 400 MG TABLET PO SCH ×2 (08:40→16:52)
[2019-02-13] MEDS: glipiZIDE 5 MG TABLET PO SCH ×2 (08:40→16:53)
[2019-02-13] MEDS: LISINOPRIL 10 MG TABLET PO SCH (08:40)
[2019-02-13] MEDS: OXCARBAZEPINE 300 MG TABLET PO SCH ×3 (08:40→16:53)
[2019-02-13] MEDS: ASCORBIC ACID 500 MG TABLET PO SCH (08:40)
[2019-02-13] MEDS: MULTIVITAMINS,THERAPEUTIC TABLET PO SCH (08:40)
[2019-02-13] MEDS: DOCUSATE SODIUM 250 MG CAPSULE PO SCH (08:44)
[2019-02-13] MEDS: PROTEIN SUPPLEMENT (PROSTAT) 30 ML LIQUID PO SCH (08:45)
[2019-02-13] MEDS: ZINC SULFATE 220 MG CAPSULE PO SCH (08:51)
[2019-02-13 16:00] VITALS: BP 121/64
[2019-02-13] MEDS: INSULIN REGULAR, HUMAN 300 UNIT/3 ML VIAL SQ PRN (17:56)
[2019-02-13 20:38] VITALS: BP 111/60
[2019-02-13] MEDS: ATORVASTATIN 10 MG TABLET PO SCH (20:41)
[2019-02-14] MEDS: BLOOD SUGAR DIAGNOSTIC 1 EACH STRIP VI SCH ×4 (06:41→20:37)
[2019-02-14] MEDS: LEVOTHYROXINE SODIUM 100 MCG TABLET PO SCH (06:42)
[2019-02-14 07:23] LABS: CREATININE 0.8 mg/dL (0.6-1.3); MAGNESIUM 1.7 mg/dL (1.8-2.4); PHOSPHOROUS 3.6 mg/dL (2.5-4.9); POTASSIUM 4.6 mmol/L (3.5-5.1)
[2019-02-14 07:30] VITALS: BP 112/52
[2019-02-14 07:33] LABS: BASOPHILS # (AUTO) 0.1 K/uL (0.0-8.0); BASOPHILS % (AUTO) 1.1 % (0.0-2.0); EOSINOPHILS % (AUTO) 9.5 % (0.0-7.0); HEMATOCRIT 39.1 % (36.7-47.1); HEMOGLOBIN 13.1 g/dL (12.5-16.3); LYMPHOCYTES # (AUTO) 2.5 K/uL (20.0-40.0); MEAN CORPUSCULAR HEMOGLOBIN 30.1 uug (23.8-33.4); MEAN CORPUSCULAR HGB CONC 33 g/dL (32.5-36.3); MEAN CORPUSCULAR VOLUME 90.3 fL (73.0-96.2); MONOCYTES # (AUTO) 0.9 K/uL (2.0-10.0); MONOCYTES % (AUTO) 8.5 % (0.0-11.0); NEUTROPHILS # (AUTO) 5.9 K/uL (1.8-8.9); NEUTROPHILS % (AUTO) 56.9 % (38.5-71.5); PLATELET COUNT (AUTO) 317 K/uL (152-348); RED BLOOD CELL COUNT(AUTO) 4.33 MIL/uL (4.06-5.63); WHITE BLOOD COUNT (AUTO) 10.3 K/uL (3.6-10.2)
[2019-02-14] MEDS: PROTEIN SUPPLEMENT (PROSTAT) 30 ML LIQUID PO SCH (08:00)
[2019-02-14] MEDS: QUETIAPINE FUMARATE 25 MG TABLET PO SCH ×3 (09:09→20:28)
[2019-02-14] MEDS: glipiZIDE 5 MG TABLET PO SCH ×2 (09:09→17:35)
[2019-02-14] MEDS: OXCARBAZEPINE 300 MG TABLET PO SCH ×3 (09:09→17:35)
[2019-02-14] MEDS: MAGNESIUM OXIDE 400 MG TABLET PO SCH ×2 (09:09→17:35)
[2019-02-14] MEDS: ASCORBIC ACID 500 MG TABLET PO SCH (09:10)
[2019-02-14] MEDS: MULTIVITAMINS,THERAPEUTIC TABLET PO SCH (09:10)
[2019-02-14] MEDS: ZINC SULFATE 220 MG CAPSULE PO SCH (09:10)
[2019-02-14] MEDS: METFORMIN HCL 500 MG TABLET PO SCH ×2 (09:10→17:36)
[2019-02-14] MEDS: DOCUSATE SODIUM 250 MG CAPSULE PO SCH (09:10)
[2019-02-14] MEDS: LISINOPRIL 10 MG TABLET PO SCH (09:10)
[2019-02-14] MEDS ORDERED: MAGNESIUM OXIDE 400 MG TABLET PO ONE (13:30)
[2019-02-14 16:34] VITALS: BP 110/53
[2019-02-14] MEDS: INSULIN REGULAR, HUMAN 300 UNIT/3 ML VIAL SQ PRN (17:35)
[2019-02-14 20:22] VITALS: BP 127/87
[2019-02-14] MEDS: ATORVASTATIN 10 MG TABLET PO SCH (20:28)
[2019-02-14] MEDS: INSULIN REGULAR, HUMAN 300 UNITS/3 ML VIAL SQ PRN (20:30)
[2019-02-15] MEDS: LEVOTHYROXINE SODIUM 100 MCG TABLET PO SCH (06:38)
[2019-02-15] MEDS: BLOOD SUGAR DIAGNOSTIC 1 EACH STRIP VI SCH ×5 (06:46→19:57)
[2019-02-15 08:00] VITALS: BP 129/61
[2019-02-15] MEDS: ASCORBIC ACID 500 MG TABLET PO SCH (08:32)
[2019-02-15] MEDS: METFORMIN HCL 500 MG TABLET PO SCH ×2 (08:32→17:01)
[2019-02-15] MEDS: ZINC SULFATE 220 MG CAPSULE PO SCH (08:32)
[2019-02-15] MEDS: OXCARBAZEPINE 300 MG TABLET PO SCH ×3 (08:32→17:02)
[2019-02-15] MEDS: LISINOPRIL 10 MG TABLET PO SCH (08:33)
[2019-02-15] MEDS: glipiZIDE 5 MG TABLET PO SCH ×2 (08:33→17:01)
[2019-02-15] MEDS: QUETIAPINE FUMARATE 25 MG TABLET PO SCH ×3 (08:33→20:09)
[2019-02-15] MEDS: MAGNESIUM OXIDE 400 MG TABLET PO SCH ×2 (08:33→17:01)
[2019-02-15] MEDS: MULTIVITAMINS,THERAPEUTIC TABLET PO SCH (08:33)
[2019-02-15] MEDS: DOCUSATE SODIUM 250 MG CAPSULE PO SCH (08:33)
[2019-02-15] MEDS: PROTEIN SUPPLEMENT (PROSTAT) 30 ML LIQUID PO SCH (08:35)
[2019-02-15 16:04] VITALS: BP 100/48
[2019-02-15] MEDS: INSULIN REGULAR, HUMAN 300 UNIT/3 ML VIAL SQ PRN (17:11)
[2019-02-15] MEDS: ATORVASTATIN 10 MG TABLET PO SCH (19:56)
[2019-02-15] MEDS: INSULIN REGULAR, HUMAN 300 UNITS/3 ML VIAL SQ PRN (20:01)
[2019-02-15 20:09] VITALS: BP 115/72
[2019-02-16] MEDS: BLOOD SUGAR DIAGNOSTIC 1 EACH STRIP VI SCH ×4 (05:56→21:19)
[2019-02-16] MEDS: LEVOTHYROXINE SODIUM 100 MCG TABLET PO SCH ×2 (05:56→08:49)
[2019-02-16] MEDS: PROTEIN SUPPLEMENT (PROSTAT) 30 ML LIQUID PO SCH (08:00)
[2019-02-16 08:06] VITALS: BP 138/67
[2019-02-16] MEDS: MAGNESIUM OXIDE 400 MG TABLET PO SCH ×2 (08:47→16:34)
[2019-02-16] MEDS: DOCUSATE SODIUM 250 MG CAPSULE PO SCH (08:47)
[2019-02-16] MEDS: glipiZIDE 5 MG TABLET PO SCH ×2 (08:47→16:34)
[2019-02-16] MEDS: ASCORBIC ACID 500 MG TABLET PO SCH (08:47)
[2019-02-16] MEDS: OXCARBAZEPINE 300 MG TABLET PO SCH ×3 (08:48→16:34)
[2019-02-16] MEDS: METFORMIN HCL 500 MG TABLET PO SCH ×2 (08:48→17:03)
[2019-02-16] MEDS: QUETIAPINE FUMARATE 25 MG TABLET PO SCH ×3 (08:48→21:19)
[2019-02-16] MEDS: LISINOPRIL 10 MG TABLET PO SCH (08:48)
[2019-02-16] MEDS: ZINC SULFATE 220 MG CAPSULE PO SCH (08:48)
[2019-02-16] MEDS: MULTIVITAMINS,THERAPEUTIC TABLET PO SCH (08:48)
[2019-02-16] MEDS: INSULIN REGULAR, HUMAN 300 UNIT/3 ML VIAL SQ PRN (16:28)
[2019-02-16 20:00] VITALS: BP 103/53
[2019-02-16] MEDS: ATORVASTATIN 10 MG TABLET PO SCH (21:19)
[2019-02-16] MEDS: INSULIN REGULAR, HUMAN 300 UNITS/3 ML VIAL SQ PRN (21:46)
[2019-02-17] MEDS: LEVOTHYROXINE SODIUM 100 MCG TABLET PO SCH (06:17)
[2019-02-17] MEDS: BLOOD SUGAR DIAGNOSTIC 1 EACH STRIP VI SCH ×2 (06:17→12:06)
[2019-02-17 07:30] VITALS: BP 141/59
[2019-02-17] MEDS: glipiZIDE 5 MG TABLET PO SCH (08:37)
[2019-02-17] MEDS: METFORMIN HCL 500 MG TABLET PO SCH (08:37)
[2019-02-17] MEDS: DOCUSATE SODIUM 250 MG CAPSULE PO SCH (08:37)
[2019-02-17 08:38] VITALS: BP 141/59
[2019-02-17] MEDS: MAGNESIUM OXIDE 400 MG TABLET PO SCH (08:38)
[2019-02-17] MEDS: LISINOPRIL 10 MG TABLET PO SCH (08:38)
[2019-02-17] MEDS: QUETIAPINE FUMARATE 25 MG TABLET PO SCH ×2 (08:38→12:07)
[2019-02-17] MEDS: OXCARBAZEPINE 300 MG TABLET PO SCH ×2 (08:39→12:07)
[2019-02-17] MEDS: MULTIVITAMINS,THERAPEUTIC TABLET PO SCH (08:39)
[2019-02-17] MEDS: ASCORBIC ACID 500 MG TABLET PO SCH (08:39)
[2019-02-17] MEDS: PROTEIN SUPPLEMENT (PROSTAT) 30 ML LIQUID PO SCH (08:54)
[2019-02-17] MEDS: ZINC SULFATE 220 MG CAPSULE PO SCH (09:38)
[2019-02-17] MEDS: INSULIN REGULAR, HUMAN 300 UNIT/3 ML VIAL SQ PRN (12:09)
== END 2019-02-17 14:45 | DRG 885 ==
LOC: ER 20:38 → GPS 22:22
PROVIDERS: ADMIT Psychiatry & Neurology Psychiatry; ATTEND Internal Medicine
DX: F29 Unspecified psychosis not due to a substance or known physiological condition (principal); N17.0 Acute kidney failure with tubular necrosis; N18.9 Chronic kidney disease, unspecified; B95.1 Streptococcus, group B, as the cause of diseases classified elsewhere; E11.65 Type 2 diabetes mellitus with hyperglycemia; F02.81 Dementia in other diseases classified elsewhere, unspecified severity, with behavioral disturbance; D68.59 Other primary thrombophilia; G91.2 (Idiopathic) normal pressure hydrocephalus; N39.0 Urinary tract infection, site not specified; G30.9 Alzheimer's disease, unspecified; G93.89 Other specified disorders of brain; E78.5 Hyperlipidemia, unspecified; F39 Unspecified mood [affective] disorder; E03.9 Hypothyroidism, unspecified; J44.9 Chronic obstructive pulmonary disease, unspecified; Z74.09 Other reduced mobility; Z79.4 Long term (current) use of insulin; E11.22 Type 2 diabetes mellitus with diabetic chronic kidney disease; I12.9 Hypertensive chronic kidney disease with stage 1 through stage 4 chronic kidney disease, or unspecified chronic kidney disease; Z79.890 Hormone replacement therapy; I45.10 Unspecified right bundle-branch block; Z79.899 Other long term (current) drug therapy; E83.42 Hypomagnesemia; R13.10 Dysphagia, unspecified; Z66 Do not resuscitate
CPT/HCPCS: 36415; 70030-TC; 70450; 71045; 80307; 83735; 84100; 84443; 85025; 85730; 87086; 93005; A4663; G0480; J1815; J2358; Q0162